=== PATIENT | female | born 1965 | race Caucasian/White ===

== ENCOUNTER → 2020-01-07 | Day surgery (SDC) | payer BC, OTHER ==
[~2020-01-07] MED LIST: ATIVAN1 MG PO; ETOMIDATE 2 MG/ML 10 ML INJ IV ONE; HYOSCYAMINE 0.125 MG TAB ONE; LIDOCAINE HCL 2% LOCAL INJ 5 ML SDV VIAL INJ ONE; PANTOPRAZOLE 40 MG 10ML VIAL ONE; PROPOFOL IV EMULSION 10 MG/ML 20 ML VIAL ONE
[2020-01-07 11:24] VITALS: BP 125/74
--- NOTE | 2020-01-07 12:08 | Operative Report ---
DATE OF PROCEDURE: 01/07/2020 SURGEON: Cuong Osborne MD PROCEDURES PERFORMED: 1. Esophagogastroduodenoscopy with polypectomy and biopsies. 2. Colonoscopy with polypectomy and biopsies. INDICATION FOR EGD: Heartburn indigestion. INDICATIONS FOR COLONOSCOPY: Colorectal cancer screening, history of rectal bleeding. MEDICATIONS: The patient was done under MAC, please see anesthesiologist's note. PROCEDURE IN DETAIL: Esophagogastroduodenoscopy with polypectomy and biopsies: With the patient in left lateral decubitus position, flexible fiberoptic Olympus gastroscope was introduced into the esophagus under direct visualization without any difficulty. There was some patchy erythema noted in distal esophagus. The scope was then advanced with ease into the stomach and some erosions were noted in the antrum, and biopsies were obtained and sent to stain for H pylori. Several minute hyperplastic-appearing polyps were noted in the body of the stomach and somewhat partially excised with the cold biopsy forceps. The pylorus was of normal contour and shape, it was intubated with ease and the scope was advanced all the way to the second portion of the duodenum. The scope was then withdrawn slowly. Mucosa overlying the proximal second portion and the duodenal bulb grossly appeared to be within normal limits. Biopsies were obtained to rule out sprue. The scope was then withdrawn back into the stomach and retroflexed. Mucosa overlying the fundus and cardia appeared to be within normal limits. The scope was then straightened out, it was subsequently withdrawn. The patient tolerated the procedure well. IMPRESSION: 1. Distal esophagitis, mild. 2. Erosive gastritis biopsied. Biopsies sent to stain for Helicobacter pylori. 3. Gastric polyps, several, body, hyperplastic-appearing, some partially excised with the cold biopsy forceps. 4. Rule out sprue. PLAN: Follow up histology. Initiate Protonix 40 mg one p.o. q.a.m. before meals. Colonoscopy with polypectomy and biopsies: The patient was then turned around. After adequate lubrication of the anal canal, a flexible fiberoptic Olympus colonoscope was inserted into the rectum with ease and advanced all the way to the cecum. Prep overall was suboptimal to poor in the cecum, ascending, transverse as well as the descending colon. The ileocecal valve was intubated and the scope was advanced into the terminal ileum. Biopsies were obtained. The scope was then withdrawn back into the colon. Whatever was visualized, the mucosa overlying the cecum, ascending, transverse and descending grossly appeared to be within normal limits. The mucosa overlying the sigmoid colon was diffusely inflamed and somewhat friable. Multiple biopsies were obtained. One polyp was hot snared from the sigmoid colon. Mild patchy inflammatory changes were noted in the rectum. Biopsies were obtained. One polyp was hot snared, one polyp was hot biopsied from the rectum. The scope was then retroflexed into the distal rectum and small internal hemorrhoids were noted, none of which was actively bleeding. The scope was then straightened out, it was subsequently withdrawn after securing an adequate stool specimen, that was sent for the appropriate stool studies. The patient tolerated the procedure well. IMPRESSION: 1. Suboptimal to poor prep. 2. Sigmoiditis, biopsies obtained. 3. Sigmoid colon polyp, hot snared. 4. Proctitis, biopsied. 5. Rectal polyps x2, one hot snared, one hot biopsied. 6. Internal hemorrhoids, none actively bleeding. PLAN: Follow up histology. Follow up stool studies. Initiate Lialda 4.8 g p.o. daily. Check IBD panel, sedimentation rate, and CRP. The patient will need a followup colonoscopy after a better prep. Cuong Osborne MD [facility] [place]/AMY /[id number] cc: Marino Beltre III, MD
[2020-01-07 12:15] LABS: WBC,FECAL (FECAL LACTOFERRIN) POSITIVE (NEGATIVE)
[2020-01-07 14:53] LABS: C DIFFICILE TOXIN A&B AMP PROB NEGATIVE (NEGATIVE)
== END | disposition home or self-care (01) ==
LOC: OR 08:06
PROVIDERS: ATTEND Internal Medicine Gastroenterology
DX: K20.9 Esophagitis, unspecified (principal); K29.00 Acute gastritis without bleeding; K31.7 Polyp of stomach and duodenum; K52.9 Noninfective gastroenteritis and colitis, unspecified; K62.89 Other specified diseases of anus and rectum; K62.1 Rectal polyp; K64.8 Other hemorrhoids; K29.50 Unspecified chronic gastritis without bleeding; Z88.2 Allergy status to sulfonamides; Z88.8 Allergy status to other drugs, medicaments and biological substances; K21.9 Gastro-esophageal reflux disease without esophagitis; F41.9 Anxiety disorder, unspecified; Z01.810 Encounter for preprocedural cardiovascular examination; Z01.812 Encounter for preprocedural laboratory examination
CPT/HCPCS: 36415; 43239; 45380; 45385; 83630; 83993; 85651; 86140; 86256; 86671; 87045; 87177; 87328; 87493; 93005; C9113; J2001; J2704; U0002; 45378; 45384